=== PATIENT | male | born 1945 | race Caucasian/White ===

== ENCOUNTER 2021-08-16 00:58 | Observation (INO) ==
[2021-08-16] MEDS ORDERED: DILTIAZEM 50 MG/10 ML VIAL IV STA (01:37)
[2021-08-16 02:07] LABS: Basophils # 0.1 10*3/uL (0.0-0.2); Basophils % 0.7 % (0.0-0.8); Eosinophils # 0.4 10*3/uL (0.0-0.87); Eosinophils % 4.6 % (0.00-10.9); Hematocrit 40.7 VOL% (42.0-52.0); Hemoglobin 12.7 GM/DL (14.0-18.0); Immature Granulocytes % 0.4 %; Immature Granulocytes Absolute 0.04 #; Lymphocytes # 1.5 10*3/uL (1.4-4.0); Lymphocytes % 16.1 % (21.2-54.2); Mean Corpuscular HGB Conc 31.2 GM/DL (32-36); Mean Corpuscular Volume 78.1 FL (87-102); Mean Platelet Volume 11.2 FL (9.6-12.0); Monocytes % 9.6 % (1.7-12.7); Neutrophils % 68.6 % (38.7-73.9); Platelet Count 280 T/CUMM (130-400); Red Blood Count 5.21 MC/CUMM (3.8-5.5); White Blood Count 9.4 T/CUMM (4-12)
[2021-08-16 02:08] LABS: Albumin 3.8 G/DL (3.4-5.0); Bilirubin,Total 0.4 MG/DL (0.20-1.00); Calcium 9.2 MG/DL (8.5-10.1); Osmolality,Calculated 285.3 MOS/KG (273-304); Potassium 3.9 MMOL/L (3.5-5.1); Thyroid Stimulating Hormone 4.55 uIU/ml (0.358-3.74)
[2021-08-16 02:18] LABS: PT Patient Result 11.2 SECS (10.5-12.0); Partial Thromboplastin Time 28.1 SECS (23.8-32.1)
[2021-08-16] MEDS ORDERED: DILTIAZEM 100 MG VIAL.ADD IV ONE (02:33)
[2021-08-16] MEDS ORDERED: DILTIAZEM INJ 100 MG in SODIUM CHLORIDE 0.9% 100 ML IV SCH (03:00)
[2021-08-16 03:13] LABS: Bacteria,Urine Occasional /HPF (Few); Mucus,Urine Occasional /LPF (Occasional); RBC,Urine 1 /HPF (0-4); Urine Color Yellow (Yellow)
[2021-08-16 03:14] LABS: Bilirubin,Urine Negative (Negative); Blood, Urine Negative (Negative); Glucose,Urine (UA) Negative (Negative); Ketones,Urine Negative (Negative); Nitrite,Urine Negative (Negative); Protein,Urine Negative (Negative); Urine Appearance Clear (Clear); Urine Urobilinogen 0.2 eU/dL (<2.0); Urine pH 7.5 (4.5-8.0)
[2021-08-16] MEDS ORDERED: GLUCAGON 1 MG VIAL IM PRN (03:15)
[2021-08-16] MEDS ORDERED: DEXTROSE 10% 250 ML BAG IV PRN (03:15)
[2021-08-16] MEDS ORDERED: MORPHINE 4 MG/1 ML VIAL IV PRN (03:15)
[2021-08-16] MEDS ORDERED: hydrALAZINE 20 MG/1 ML VIAL IV PRN (03:15)
[2021-08-16] MEDS ORDERED: ONDANSETRON 4 MG/2 ML VIAL IV PRN (03:15)
[2021-08-16] MEDS ORDERED: ACETAMINOPHEN 325 MG TABLET PO PRN (03:15)
[2021-08-16] MEDS ORDERED: POTASSIUM CHLORIDE 20 MEQ TABLET PO STA (03:15)
[2021-08-16] MEDS ORDERED: MAGNESIUM SULF RIDER 2 GM/50 ML PREMIX IV ONE (03:38)
[2021-08-16 06:29] VITALS: BP 151/81
[2021-08-16] MEDS ORDERED: INSULIN LISPRO 100 UNIT/ML SUBCUT SCH (07:30)
[2021-08-16] MEDS ORDERED: ASPIRIN EC 81 MG TABLET PO SCH (09:00)
[2021-08-16] MEDS ORDERED: ALPRAZolam 0.5 MG TABLET PO SCH (09:00)
[2021-08-16] MEDS ORDERED: APIXABAN 5 MG TABLET PO SCH (09:00)
[2021-08-16] MEDS ORDERED: METOPROLOL SUCCINATE XL 50 MG TABLET PO SCH (09:00)
[2021-08-16] MEDS ORDERED: CYANOCOBALAMIN 500 MCG TABLET PO SCH (09:00)
[2021-08-16] MEDS ORDERED: PANTOPRAZOLE 40 MG TABLET PO SCH (09:00)
[2021-08-16] MEDS ORDERED: ASCORBIC ACID 500 MG TABLET PO SCH (09:32)
[2021-08-16] MEDS ORDERED: METOPROLOL SUCCINATE XL 50 MG TABLET PO ONE (11:00)
[2021-08-16] MEDS ORDERED: METOPROLOL SUCCINATE XL 100 MG TABLET PO SCH (21:00)
[2021-08-16] MEDS ORDERED: ATORVASTATIN 10 MG TABLET PO SCH (21:00)
== END 2021-08-16 11:02 | disposition home or self-care (01) ==
LOC: N.EDINP 00:58 → N.ED 00:58 → N.EDINP 11:04
PROVIDERS: ADMIT Internal Medicine Geriatric Medicine; ATTEND Internal Medicine Geriatric Medicine